=== PATIENT | male | born 1970 | race Hispanic/Latino ===

== ENCOUNTER 2017-05-11 20:23 | Emergency (ER) | payer BC ==
[2017-05-11 20:38] VITALS: BP 135/85; PULSE 94; RESP 18; TEMP 98.7; O2SAT 97
--- NOTE | 2017-05-11 21:01 | ED PDOC ---
Upper Extremity Pain/Injury Time Seen by Provider: 05/11/17 20:44 Chief Complaint (Nursing): Abnormal Skin Integrity Chief Complaint (Provider): Finger laceration History Per: Patient History/Exam Limitations: no limitations Onset/Duration Of Symptoms: Hrs (2) Additional Complaint(s): Patient is a 47 y/o male with no significant past medical history presenting to the emergency department for a left finger laceration sustained after cutting food with a kitchen knife. Reports that blood was gushing out at the time of the injury. Denies possible blade/meat contamination, and pain or injuries elsewhere. Tetanus shot is up to date. PCP: none provided Past Medical History Reviewed: Historical Data, Nursing Documentation, Vital Signs Vital Signs: Last Vital Signs Temp 98.7 F 05/11/17 20:34 Pulse 94 H 05/11/17 20:34 Resp 18 05/11/17 20:34 BP 135/85 05/11/17 20:34 Pulse Ox 97 05/11/17 20:34 - Family History Family History: States: No Known Family Hx - Allergies Allergies/Adverse Reactions: Allergies Allergy/AdvReac Type Severity Reaction Status Date / Time No Known Allergies Allergy Verified 05/11/17 20:34 Review of Systems ROS Statement: Except As Marked, All Systems Reviewed And Found Negative Musculoskeletal: Positive for: Other (laceration on the tip of left ring finger with bruising. no active bleeding) Physical Exam - Reviewed Nursing Documentation Reviewed: Yes Vital Signs Reviewed: Yes - Physical Exam Appears: Positive for: Well, Non-toxic, No Acute Distress Head Exam: Positive for: ATRAUMATIC, NORMAL INSPECTION, NORMOCEPHALIC Skin: Positive for: Normal Color, Warm, Dry Eye Exam: Positive for: Normal appearance. Negative for: Scleral icterus Neck: Positive for: Normal, Painless ROM, Supple Respiratory: Negative for: Accessory Muscle Use, Respiratory Distress Extremity: Positive for: Normal ROM, Other (Left fourth finger laceration extending from the tip to the DIP with small, closed avulsion with evident healing and mild bruising. No active bleeding. No nail bed destruction.) Neurologic/Psych: Positive for: Alert, Oriented (x3) - ECG O2 Sat by Pulse Oximetry: 97 (RA) Pulse Ox Interpretation: Normal Medical Decision Making Medical Decision Makin:55 Initial impression: Left finger laceration There is no indication for suturing at this time due to healing of the wound. Patient was offered suturing but declined. Consented to irrigation with normal saline and Steri strip application. 21:00 Steri strip was applied without difficulty. Patient was advised to allow Sterislip to fall off on its own. 21:15 Upon provider reevaluation patient is feeling better, is medically stable, and requires no further treatment in the ED at this time. Counseling was provided and all questions were answered regarding diagnosis. There is agreement to discharge plan. Return if symptoms persist or worsen. Scribe Attestation: Documented by Sondra Valdez, acting as a scribe for MALVIN Corley. Provider Scribe Attestation: All medical record entries made by the Scribe were at my direction and personally dictated by me. I have reviewed the chart and agree that the record accurately reflects my personal performance of the history, physical exam, medical decision making, and the department course for this patient. I have also personally directed, reviewed, and agree with the discharge instructions and disposition. Disposition - Clinical Impression Clinical Impression: Laceration - Patient ED Disposition Is Patient to be Admitted: No - Disposition Disposition: Routine/Home Disposition Time: 21:00 Condition: STABLE Instructions: Care For Your Stitches (ED), Laceration (ED) Forms: [facility] ([place]ian)
== END 2017-05-11 21:23 | disposition home or self-care (01) ==
LOC: H.ER 20:23
DX: S61.215A Laceration without foreign body of left ring finger without damage to nail, initial encounter (principal); W26.0XXA Contact with knife, initial encounter; Y92.89 Other specified places as the place of occurrence of the external cause